=== PATIENT | female | born 1965 | race Two or more races ===

== ENCOUNTER 2018-08-23 03:27 | Emergency (ER) | payer OTHER ==
[~2018-08-23] VITALS: Ht 154.9 cm; Wt 64.9 kg
[2018-08-23 03:27] VITALS: BP 151/86
--- NOTE | 2018-08-23 03:30 | NUR ---
52/F BIBA FROM HOME, C/O L SIDED CP, RADIATING TO L ARM, X4 HRS. PT REPORTS NAUSEA, DENIES VOMITING. DENIES FEVER OR COUGH. AOX4, GCS 15, SKIN NORMAL DRY AND INTACT, RR EVEN AND UNLABORED. LUNG SOUNDS CLEAR BL. HX HIGH CHOLESTEROL.
--- NOTE | 2018-08-23 03:34 | NUR ---
EKG PERFORMED AT BEDSIDE WITH SPOUSE PRESENT
[2018-08-23] MEDS ORDERED: NITROGLYCERIN 0.4 MG TAB SL ONE (03:50)
[2018-08-23] MEDS ORDERED: NACL 0.9% 1,000 ML IV ONE (03:55)
[2018-08-23] MEDS ORDERED: MORPHINE SULFATE 4 MG/ML SYR IVP ONE (03:55)
[2018-08-23] MEDS ORDERED: ONDANSETRON 4 MG/2 ML VIAL IVP ONE (03:55)
[2018-08-23 04:09] LABS: BASOPHILS # (AUTO) 0.1 K/uL (0.00-0.22); BASOPHILS % (AUTO) 0.9 % (0.0-2.0); EOSINOPHILS # (AUTO) 0.2 K/uL (0-0.4); EOSINOPHILS % (AUTO) 3.5 % (0.0-4.0); HEMATOCRIT 41.7 % (36-48); HEMOGLOBIN 14.2 g/dL (12.0-16.0); LYMPHOCYTES # (AUTO) 2.8 K/uL (2.5-16.5); LYMPHOCYTES % (AUTO) 42.7 % (20.5-51.1); MEAN CORPUSCULAR HEMOGLOBIN 31 pg (27-31); MEAN CORPUSCULAR HGB CONC 34 g/dL (33-37); MONOCYTES # (AUTO) 0.5 K/uL (0.8-1.0); MONOCYTES % (AUTO) 7.5 % (1.7-9.3); NEUTROPHILS % (AUTO) 45.4 % (42.2-75.2); PLATELET COUNT (AUTO) 303 K/uL (140-450); RED BLOOD CELL COUNT(AUTO) 4.58 MIL/uL (4.20-5.40); WHITE BLOOD COUNT (AUTO) 6.7 K/uL (4.8-10.8)
[2018-08-23 04:25] LABS: ALBUMIN 3.7 g/dL (3.4-5.0); ANION GAP 11.2 (8-16); CARBON DIOXIDE 26.9 mmol/L (21-32); CREATININE 0.7 mg/dL (0.6-1.3); POTASSIUM 3.1 mmol/L (3.5-5.1); TOTAL BILIRUBIN 0.3 mg/dL (0.0-1.0)
[2018-08-23] MEDS ORDERED: POTASSIUM CHLORIDE 10 MEQ TABER PO ONE (04:35)
[2018-08-23 04:43] LABS: APPEARANCE,URINE CLEAR (CLEAR); BILIRUBIN,URINE NEGATIVE (NEGATIVE); BLOOD, URINE TRACE-I (NEGATIVE); COLOR,URINE YELLOW (YELLOW); LEUKOCYTE ESTERASE ,URINE NEGATIVE (NEGATIVE); NITRITE, URINE NEGATIVE (NEGATIVE); PH,URINE 7.5 (5.0-9.0); UGLUCOSE NEGATIVE (NEGATIVE)
[2018-08-23 06:22] LABS: RBC,URINE 0 /HPF (0-5); WBC,URINE NONE SEEN /HPF (0-5)
[2018-08-23 06:53] VITALS: BP 111/65
--- NOTE | 2018-08-23 06:53 | NUR ---
Patient discharged with v/s stable. Written and verbal after care instructions given and explained. Patient verbalized understanding. Ambulatory with steady gait. All questions addressed prior to discharge. Advised to follow up with PMD.
== END 2018-08-23 06:50 | disposition home or self-care (01) ==
LOC: MED 03:27
DX: E87.6 Hypokalemia (principal); R07.89 Other chest pain; E78.00 Pure hypercholesterolemia, unspecified; Z88.5 Allergy status to narcotic agent
CPT/HCPCS: 36415; 71045; 80053; 81001; 83880; 84484; 85025; 93005; 96374; 96375; 99284; J2270; J2405; J7030; Q0092